=== PATIENT | female | born 1990 | race Caucasian/White ===

== ENCOUNTER 2017-07-18 18:19 | Emergency (ER) | payer OTHER, MEDICAID ==
[2017-07-18 19:57] LABS: URINE BLOOD (Dip) POC 1+ (NEGATIVE); URINE GLUCOSE (Dip) POC Negative (NEGATIVE); URINE KETONES (Dip) POC Trace (NEGATIVE); URINE LEUKOCYTE EST (Dip) POC Negative (NEGATIVE); URINE NITRITE (Dip) POC Negative (NEGATIVE); URINE TOTAL PROTEIN POC Negative (NEGATIVE)
[2017-07-18] MEDS: KETOROLAC 60 MG INJ IM (20:05)
== END 2017-07-18 20:40 | disposition home or self-care (01) ==
LOC: FTE 18:19
DX: M54.9 Dorsalgia, unspecified (principal)
CPT/HCPCS: 81003; 96372; 99284-25

== ENCOUNTER 2017-11-01 14:36 | Emergency (ER) | payer OTHER ==
[2017-11-01] MEDS: LIDOCAINE/MYLANTA 40 ML BTL PO (18:51)
[2017-11-01] MEDS: ONDANSETRON (ODT) 4 MG TAB ODT (18:51)
[2017-11-01 19:07] LABS: URINE BLOOD (Dip) POC 2+ (NEGATIVE); URINE GLUCOSE (Dip) POC Negative (NEGATIVE); URINE KETONES (Dip) POC Negative (NEGATIVE); URINE LEUKOCYTE EST (Dip) POC Negative (NEGATIVE); URINE NITRITE (Dip) POC Negative (NEGATIVE); URINE TOTAL PROTEIN POC Negative (NEGATIVE)
[2017-11-01 19:07] LABS: URINE PH (Dip) POC 6.5 (5.0-8.5)
[2017-11-01 20:12] LABS: ADD MAN DIFF? NO
[2017-11-01 20:15] LABS: WHITE BLOOD COUNT 8.9 10^3/ul (4.8-10.8)
[2017-11-01 20:15] LABS: BASOPHILS % 0.3 % (0.0-2.0); EOSINOPHILS # 0.2 10^3/ul (0.0-0.5); EOSINOPHILS % 2.1 % (0.0-7.0); HEMATOCRIT 40.1 % (37.0-47.0); HEMOGLOBIN 13.8 g/dl (12.0-16.0); LYMPHOCYTES % 33.4 % (15.0-51.0); MEAN CORPUSCULAR HEMOGLOBIN 30.5 pg (29.0-33.0); MEAN CORPUSCULAR HGB CONC 34.4 g/dl (32.0-37.0); MEAN CORPUSCULAR VOLUME 88.7 fl (82.0-101.0); MEAN PLATELET VOLUME 9.4 fl (7.4-10.4); MONOCYTE # 0.5 10^3/ul (0.3-0.9); MONOCYTES % 5.7 % (0.0-11.0); NEUTROPHIL # 5.2 10^3/ul (1.6-7.5); NEUTROPHILS % 58.2 % (39.0-77.0); PLATELET COUNT 288 10^3/UL (140-415); RED BLOOD COUNT 4.52 10^6/ul (4.20-5.40); RED CELL DISTRIBUTION WIDTH 12.4 % (11.5-14.5)
[2017-11-01 20:35] LABS: INR 0.93; PARTIAL THROMBOPLASTIN TIME 30.9 Sec (25.0-35.0); PROTIME 12.5 Sec (11.9-14.9)
[2017-11-01 20:52] LABS: ALANINE AMINOTRANSFERASE 19 IU/L (13-69); ALBUMIN 4.7 g/dl (3.3-4.9); ALBUMIN/GLOBULIN RATIO 1.51; ALKALINE PHOSPHATASE 100 IU/L (42-121); ANION GAP 18 (8-16); ASPARTATE AMINO TRANSFERASE 35 IU/L (15-46); BILIRUBIN,INDIRECT 0.2 mg/dl (0-1.1); BILIRUBIN,TOTAL 0.2 mg/dl (0.2-1.3); BLOOD UREA NITROGEN 9 mg/dl (7-20); CALCIUM 9.4 mg/dl (8.4-10.2); CARBON DIOXIDE 28 mmol/L (21-31); CHLORIDE 102 mmol/L (97-110); CREATININE 0.66 mg/dl (0.44-1.00); GLUCOSE 88 mg/dl (70-220); LIPASE 49 U/L (23-300); POTASSIUM 4.2 mmol/L (3.5-5.1); SODIUM 144 mmol/L (135-144); TOTAL PROTEIN 7.8 g/dl (6.1-8.1)
== END 2017-11-01 22:11 | disposition home or self-care (01) ==
LOC: FTE 14:36
DX: R10.2 Pelvic and perineal pain (principal); R11.2 Nausea with vomiting, unspecified
CPT/HCPCS: 76705; 76830; 76856; 80053; 81003; 81025; 83690; 85025; 85610; 85730; 99285-25

== ENCOUNTER 2018-01-26 18:33 | Emergency (ER) | payer OTHER ==
[2018-01-26] MEDS: MECLIZINE 12.5 MG TAB PO (19:41)
[2018-01-26 19:58] LABS: ADD MAN DIFF? NO
[2018-01-26 20:07] LABS: WHITE BLOOD COUNT 11.3 10^3/ul (4.8-10.8)
[2018-01-26 20:07] LABS: BASOPHILS % 0.3 % (0.0-2.0); EOSINOPHILS # 0.3 10^3/ul (0.0-0.5); EOSINOPHILS % 2.6 % (0.0-7.0); HEMATOCRIT 40.6 % (37.0-47.0); HEMOGLOBIN 13.4 g/dl (12.0-16.0); LYMPHOCYTES # 3.2 10^3/ul (0.8-2.9); LYMPHOCYTES % 28.4 % (15.0-51.0); MEAN CORPUSCULAR HEMOGLOBIN 30.5 pg (29.0-33.0); MEAN CORPUSCULAR VOLUME 92.3 fl (82.0-101.0); MEAN PLATELET VOLUME 9.7 fl (7.4-10.4); MONOCYTE # 0.8 10^3/ul (0.3-0.9); MONOCYTES % 7.4 % (0.0-11.0); NEUTROPHIL # 6.9 10^3/ul (1.6-7.5); NEUTROPHILS % 60.9 % (39.0-77.0); PLATELET COUNT 276 10^3/UL (140-415); RED CELL DISTRIBUTION WIDTH 12.6 % (11.5-14.5)
[2018-01-26 20:10] LABS: ADD UMIC YES; UR ASCORBIC ACID NEGATIVE (NEGATIVE); UR BILIRUBIN (Dip) NEGATIVE (NEGATIVE); UR BLOOD (Dip) 1+ mg/dL (NEGATIVE); UR CLARITY CLOUDY (CLEAR); UR COLOR YELLOW (YELLOW); UR GLUCOSE (Dip) NEGATIVE (NEGATIVE); UR KETONES (Dip) NEGATIVE (NEGATIVE); UR LEUKOCYTE ESTERASE (Dip) TRACE Leu/ul (NEGATIVE); UR NITRITE (Dip) NEGATIVE (NEGATIVE); UR RBC 5 /HPF (0-5); UR SPECIFIC GRAVITY (Dip) 1.024 (1.003-1.030); UR SQUAMOUS EPITHELIAL CELL MODERATE /HPF (FEW); UR TOTAL PROTEIN (Dip) NEGATIVE (NEGATIVE); UR UROBILINOGEN (Dip) 1+ mg/dL (NEGATIVE); UR WBC 6 /HPF (0-5)
[2018-01-26 20:22] LABS: ANION GAP 13 (8-16); BLOOD UREA NITROGEN 13 mg/dl (7-20); CALCIUM 9.3 mg/dl (8.4-10.2); CARBON DIOXIDE 27 mmol/L (21-31); CHLORIDE 103 mmol/L (97-110); GLUCOSE 84 mg/dl (70-220); POTASSIUM 4.1 mmol/L (3.5-5.1); SODIUM 139 mmol/L (135-144)
[2018-01-26 21:00] LABS: INR 1.03; PROTIME 13.6 Sec (11.9-14.9); PT RATIO 1.1
== END 2018-01-26 21:38 | disposition home or self-care (01) ==
LOC: FTE 18:33
DX: R42 Dizziness and giddiness (principal)
CPT/HCPCS: 36415; 70450; 80048; 81001; 81025; 85025; 85610; 85730; 93005; 99285-25

== ENCOUNTER 2018-03-06 11:11 | Emergency (ER) | payer OTHER ==
[2018-03-06 12:00] LABS: URINE PH (Dip) POC 7.5 (5.0-8.5)
[2018-03-06 12:00] LABS: URINE BLOOD (Dip) POC 1+ (NEGATIVE); URINE GLUCOSE (Dip) POC Negative (NEGATIVE); URINE KETONES (Dip) POC Negative (NEGATIVE); URINE LEUKOCYTE EST (Dip) POC Negative (NEGATIVE); URINE NITRITE (Dip) POC Positive (NEGATIVE); URINE TOTAL PROTEIN POC Negative (NEGATIVE)
== END 2018-03-06 12:26 | disposition home or self-care (01) ==
LOC: FTE 11:11
DX: N30.90 Cystitis, unspecified without hematuria (principal); J45.909 Unspecified asthma, uncomplicated
CPT/HCPCS: 81003; 81025; 87086; 99283

== ENCOUNTER 2018-03-22 09:03 | Emergency (ER) | payer OTHER ==
[2018-03-22] MEDS: IBUPROFEN 600 MG TAB PO (10:02)
== END 2018-03-22 11:19 | disposition home or self-care (01) ==
LOC: FTE 09:03
DX: M54.5 Low back pain (principal); J45.909 Unspecified asthma, uncomplicated; Z04.1 Encounter for examination and observation following transport accident
CPT/HCPCS: 72100; 81025; 99283-25

== ENCOUNTER 2018-04-26 12:47 | Emergency (ER) | payer OTHER | END 2018-04-26 14:07 | disposition home or self-care (01) | LOC: FTE 12:47 | DX: J06.9 Acute upper respiratory infection, unspecified (principal); J45.909 Unspecified asthma, uncomplicated | CPT/HCPCS: 99282 ==